=== PATIENT | male | born 1985 | race Caucasian/White ===

== ENCOUNTER 2016-12-23 14:58 | Emergency (ER) | payer BC ==
--- NOTE | 2016-12-23 16:35 | RAD ---
HISTORY: Left hand laceration COMPARISONS: None VIEWS: 5, Frontal, lateral, and oblique views of the left hand FINDINGS: BONE DENSITY: Normal. BONES: There is a nondisplaced fracture of the base of the distal thighs the first digit with articular extension to the interphalangeal joint. JOINTS: There is no arthropathy. ALIGNMENT: There is no dislocation. SOFT TISSUES: Unremarkable. OTHER FINDINGS: None. IMPRESSION: NONDISPLACED FRACTURE OF THE BASE OF THE DISTAL PHALANX OF THE FIRST DIGIT
[2016-12-23] MEDS ORDERED: Morphine INJ* 4 MG/ML 1 ML CARPUJECT IV ONE (16:53)
[2016-12-23] MEDS ORDERED: ceFAZolin 1 GM VIAL(*) 1 GM in NS 0.9% 50 ML* 50 ML IVPB ONE (16:53)
[2016-12-23] MEDS ORDERED: Ondansetron INJ* 2 MG/ML VIAL IV ONE (16:53)
[2016-12-23] MEDS ORDERED: Tetan/Diph/Pertus SYR(Tdap)* 0.5 ML SYR(BOOSTRIX) use SYR IM ONE (17:01)
--- NOTE | 2016-12-23 17:01 | ED ---
Upper Extremity Pain - HPI Summary HPI Summary: 31M presents with laceration to left thumb from a wood splitter today. He has numbness to the tip of his finger. He has a large laceration through the IP joint that can see bone. He is able to flex the finger but unable to extend his finger. He denies any previous injury to the area. His pain is 10/10. [facility] here. He has not taken anything for his pain. He is right handed. He works construction. He has no other injury. - History of Current Complaint Chief Complaint: EDLacSutureRecheck Stated Complaint: THUMB LAC Time Seen by Provider: 12/23/16 16:40 - Allergies/Home Medications Allergies/Adverse Reactions: Allergies Allergy/AdvReac Type Severity Reaction Status Date / Time No Known Allergies Allergy Verified 09/04/15 20:22 PMH/Surg Hx/FS Hx/Imm Hx Endocrine/Hematology History: Denies: Hx Diabetes, Hx Thyroid Disease Cardiovascular History: Denies: Hx Hypercholesterolemia, Hx Hypertension, Hx Peripheral Vascular Disease Musculoskeletal History: Denies: Hx Arthritis, Hx Rheumatoid Arthritis, Hx Osteoporosis Sensory History: Denies: Hx Cataracts, Hx Contacts or Glasses, Hx Glaucoma Opthamlomology History: Denies: Hx Cataracts, Hx Contacts or Glasses, Hx Glaucoma Neurological History: Denies: Hx Headaches, Hx Seizures, Hx Transient Ischemic Attacks (TIA) Psychiatric History: Denies: Hx Anxiety, Hx Depression Infectious Disease History: No Infectious Disease History: Denies: Traveled Outside the [place] in Last 30 Days - Family History Known Family History: Positive: Hypertension - Social History Alcohol Use: Occasionally Hx Substance Use: No Substance Use Type: Reports: None Hx Tobacco Use: No Smoking Status (MU): Never Smoked Tobacco Review of Systems Negative: Fever Negative: Chest Pain Negative: Shortness Of Breath Positive: Other - laceration left thumb All Other Systems Reviewed And Are Negative: Yes Physical Exam Triage Information Reviewed: Yes Vital Signs On Initial Exam: Initial Vitals Temp Pulse Resp BP Pulse Ox 98.1 F 112 20 150/94 98 12/23/16 15:01 12/23/16 15:01 12/23/16 15:01 12/23/16 15:01 12/23/16 15:01 Vital Signs Reviewed: Yes Appearance: Positive: Pain Distress Skin: Positive: Warm, Dry, Other - 3cm by 1cm by 1cm across left IP joint of thumb, can see to bone Head/Face: Positive: Normal Head/Face Inspection Eyes: Positive: Normal, EOMI, KAREN, Conjunctiva Clear ENT: Positive: Normal ENT inspection, Pharynx normal, TMs normal Respiratory/Lung Sounds: Positive: Clear to Auscultation, Breath Sounds Present Cardiovascular: Positive: Normal, RRR Musculoskeletal: Positive: Limited @ - able to flex left thumb but unable to extend thumb, Other - decreased sensation of distal thumb, capillary refill<2 secs Psychiatric: Positive: Normal - Esha Coma Scale Coma Scale Total: 15 Procedures - Laceration/Wound Repair 1 Location: Other - left thumb Description: Irregular Anesthesia: Digital, 1.0% Length, Depth and Shape: 3cm by 1cm by 1cm Betadine Prep?: Yes Irrigated w/ Saline (ccs): 2,000 Laceration/Wound Explored: no foreign body removed Closure: Single Layer Suture Type: Prolene - 4-0 Number of Sutures: 7 Layer Closure?: No Sterile Dressing Applied?: Yes - neosporin, telfa, finger splint wrapped with coband and kellie Diagnostics - Vital Signs Vital Signs Temp Pulse Resp BP Pulse Ox 12/23/16 15:01 98.1 F 112 20 150/94 98 - Laboratory Lab Statement: Any lab studies that have been ordered have been reviewed, and results considered in the medical decision making process. - Radiology hand Xray Interpretation: Positive (See Comments) - IMPRESSION: NONDISPLACED FRACTURE OF THE BASE OF THE DISTAL PHALANX OF THE FIRST DIGIT Radiology Interpretation Completed By: Radiologist Course/Dx - Course Course Of Treatment: 31M presents with laceration to left thumb from a wood splitter today. He has numbness to the tip of his finger. He has a large laceration through the IP joint that can see bone. He is able to flex the finger but unable to extend his finger. He denies any previous injury to the area. on exam has some decreased sensation to tip of thumb. good capillary refill<2 secs, 3cm by 1cm by 1cm laceration across IP joint of left thumb. extensively irriagated area with clorexidine solution and placed 7 sutures for a loose closure. spoke with dr hameed who will see in office do to unable to extend finger appears lacerated extensor tendon. place metal splint on area. gave a gram of ancef and tetanus. will discharge on keflex and pain meds. patient understands and agrees with plan. - Diagnoses Differential Diagnosis/HQI/PQRI: Positive: Fracture (Open), Laceration, Other - tendon laceration Provider Diagnoses: Laceration of left thumb, Open fracture of distal phalanx of left hand - Physician Notifications Discussed Care of Patient With: dr hameed Time Discussed With Above Provider: 16:45 - loose closure will follow up in office Discharge - Discharge Plan Condition: Good Disposition: HOME Prescriptions: Cephalexin CAP* [Keflex CAP*] 500 mg PO BID #14 cap oxyCODONE/Acetamin 5/325 MG* [Percocet 5/325 TAB*] 1 tab PO Q6H PRN #18 tab MDD 4 PRN Reason: Pain Patient Education Materials: Care For Your Stitches (ED) Referrals: Monty Canales MD [Primary Care Provider] - Ryne Hameed MD [Medical Doctor] - Additional Instructions: Keep area in splint, change dressing once a day, place neosporin Keep area clean and dry for 48 hours, after that basic hand washing Take Tylenol or ibuprofen for pain every 6 hours, use narcotic for break through pain Follow up with ortho on sunday, call office Return to ED or primary for suture removal in 10-14 days Return to ED if develop signs of infection such as fever, spreading redness, or pus formation
[2016-12-23] MEDS ORDERED: Lidocaine 1%* 5 ML VIAL INJ ONE (18:21)
[2016-12-23] MEDS ORDERED: Lidocaine 1%* 5 ML VIAL ONE (19:09)
[2016-12-23] MEDS ORDERED: oxyCODONE/Acetamin 5/325 MG* TAB PO ONE (19:45)
[2016-12-23 20:09] VITALS: BP 135/89
== END 2016-12-23 20:08 | disposition home or self-care (01) ==
LOC: ED 14:58
DX: S61.012A Laceration without foreign body of left thumb without damage to nail, initial encounter (principal); W31.2XXA Contact with powered woodworking and forming machines, initial encounter; Y92.9 Unspecified place or not applicable
CPT/HCPCS: 12002; 90471; 90715; 96360; 96374; 96375; 99282; A9270-GY; J0690; J2270; J2405

== ENCOUNTER → 2018-03-01 | Day surgery (SDC) | payer BC ==
[~2018-03-01] MED LIST: Acetaminophen TAB* 325 MG ONE; Buffered Lidocaine 0.9% SYRIN* 5 ML/SYR SYRINGE INTRADERM ONE; Bupivacaine 0.25% SDV PF* 10 ML VIAL INJ ONE; Lactated Ringers 1000 ML Bag* 1,000 ML IV SCH; Lidocaine 1% INJ* 10 MG/ML 30 ML SDV ONE; Lidocaine 2% PF * 5 ML VIAL ONE; Midazolam* 1 MG/ML 2 ML VIAL (2 MG) ONE; Naloxone* 0.4 MG/ML 1 ML VIAL IV PRN; Ondansetron INJ* 2 MG/ML VIAL ONE; Propofol* 10 MG/ML 20 ML BTL ONE; Sodium Citrate/Citric Acid* 15 ML UDC ONE; Sodium Citrate/Citric Acid* 15 ML UDC PO ONE; Succinylcholine* 20 MG/ML 10 ML VIAL ONE; fentaNYL* 50 MCG/ML 2 ML VIAL (100 MCG VIAL) ONE; hydrALAZINE IV* 20 MG/ML VIAL ONE
[2018-03-01] MEDS: fentaNYL* 50 MCG/ML 2 ML VIAL (100 MCG VIAL) IV PRN ×2 (11:16→12:03)
[2018-03-01 16:54] VITALS: BP 136/80
--- NOTE | 2018-03-01 20:28 | OP ---
OPERATIVE REPORT: DATE OF OPERATION: 03/01/18 DATE OF : 87 SERVICE: General Surgery. ATTENDING SURGEON: Dr. Lory Joya. FISH CLEANER MACHINE TENDER: Dr. Cassandra Villegas. PRE-OP DIAGNOSIS: Left thyroid toxic adenoma POST-OP DIAGNOSIS: Left thyroid toxic adenoma OPERATIVE PROCEDURE: Left thyroid lobectomy. SPECIMEN: Left thyroid lobe. ESTIMATED BLOOD LOSS: Less than 10 cc. INDICATION FOR SURGERY: Mr. Alonzo is a 32-year-old gentleman with a history of hyperthyroidism. He had a thyroid uptake scan showing increased activity in the mid to lower pole and it was determined on ultrasound that he also had an approximately 27 mm left thyroid nodule that was determined to be the toxic adenoma. For this reason, a left thyroid lobectomy was indicated. He understood the risks, benefits, and alternatives of the procedure and he wished to proceed. DESCRIPTION OF PROCEDURE: The patient was brought back to the operating room and placed on the operating table in the supine position. Venodyne boots were placed in the bilateral lower extremities for DVT prophylaxis. No antibiotics were administered. General endotracheal anesthesia was induced. The nerve monitor probes were attached. Local anesthesia consisting of a 0.25% Marcaine and 1% lidocaine mix was administered to his neck and the neck was prepped and draped in normal sterile fashion. Prior to beginning the procedure, a time-out was performed, verifying the patient's name, MR number, and the procedure to be performed. The laterality was also confirmed, which was on the left side. Next , an incision was made in the midline of the neck approximately 2 cm above the upper sternal notch. The skin was divided down to the subcutaneous tissue and the platysma was divided. Next, the inferior and superior subplatysmal flaps were developed, and once this was done, a retractor was placed. The median raphe of the neck was identified and divided all the way down to the isthmus of the thyroid. Next, the isthmus was divided using a LigaSure down to the trachea , and once this was done, the medial attachments of the thyroid to the trachea were divided using a LigaSure and the space of Reeve was developed. Next, the lateral attachments were bluntly dissected out. The middle thyroid vein on the left side was identified and divided, and the superior pole was taken down using a combination of LigaSure and 2-0 silk ties. Once this was done, the thyroid lobe was displaced up and out of the neck, and the recurrent laryngeal nerve was identified using a combination of visual inspection as well as the nerve monitor. Its path was traced out until approximately its entry into the cricothyroid muscle and then once this was definitely identified, the thyroid was taken off of the trachea using a LigaSure with care to avoid the recurrent laryngeal nerve. The left lower parathyroid was also identified definitively and the left upper was not noted to be in the specimen. The left thyroid lobe was then taken off the table as specimen. A stitch was placed in the upper lobe to orient it and attention was turned towards the left neck. Valsalva showed that there was no active bleeding. There was a small amount of bleeding only noted near the trachea which was bovied, and after hemostasis was obtained , 4 cc of Tisseel was placed into the left neck and the strap muscles were closed using interrupted 3-0 Vicryl sutures, and the platysma was closed using interrupted 3-0 Vicryl sutures, and the skin was closed using 4-0 Prolene suture and a sterile dressing was placed. The patient's anesthesia was reversed at the end of the case and he was taken to the PACU in stable condition. At the end of the case, all counts were correct and I was present during the entirety of the case. [id number]/[facility] #: [id number] ISAURA
== END | disposition home or self-care (01) ==
LOC: OR 06:45
PROVIDERS: ATTEND Surgery
DX: E05.10 Thyrotoxicosis with toxic single thyroid nodule without thyrotoxic crisis or storm (principal); E03.9 Hypothyroidism, unspecified
CPT/HCPCS: 88307; A9270-GY; C1776; J0330; J0360; J2250; J2405; J2704; J3010; J3490